=== PATIENT | male | born 1990 | race Caucasian/White ===

== ENCOUNTER 2017-10-01 11:39 | Emergency (ER) | payer BC, MEDICAID ==
[2017-10-01 11:58] VITALS: BP 147/82
--- NOTE | 2017-10-01 12:39 | UC ---
Norberto De Santiago Angela, scribed for Madison Edward MD on 10/01/17 at 1225 . General HPI - HPI Summary HPI Summary: This pt is a 26 y/o male presenting to [facility] c/o sinus infection x3 days. Pt reports he has had sinus congestion, sinus pain, right max, right frontal, chills, right ear pain (since this morning). He denies diarrhea, SOB, chest pain , cough. Pt notes normal PO intake. He believes he had sick contact from Thanksgiving dinner on 09/28/17. Pt has taken Sudafed this morning 3 hours [employer]. Has done saline sinus wash with minimal relief. + PND. No rash. no abd pain. No n/v. Allergies to penicillin, his reaction is hives. Patients medication reviewed this visit. - History of Current Complaint Chief Complaint: UCRespiratory Stated Complaint: SINUS ISSUE EAR PAIN Hx Obtained From: Patient Onset/Duration: Lasting Days, Still Present Timing: Constant Current Severity: Moderate Pain Location at: right ear, sinus pain Associated Signs & Symptoms: Positive: Other - POS: right ear ache, sinus infection, sinus congestion. NEG: diarrhea. 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 NEG: fever. Skin: Negative Eyes: Negative ENT: Ear Ache - right, Sinus Congestion, Sinus Pain/Tenderness Respiratory: Negative Cardiovascular: Negative Gastrointestinal: Negative Genitourinary: Negative Motor: Negative Neurovascular: Negative Musculoskeletal: Negative Neurological: Negative Psychological: Negative Is Patient Immunocompromised?: No All Other Systems Reviewed And Are Negative: Yes Physical Exam Triage Information Reviewed: Yes Completion Of Physical Exam Limited Due To: Altered Mental Status Appearance: Well-Appearing, No Pain Distress, Well-Nourished Vital Signs: Initial Vital Signs Temp 98 F 10/01/17 11:55 Pulse 88 10/01/17 11:55 Resp 20 10/01/17 11:55 BP 147/82 10/01/17 11:55 Pulse Ox 100 10/01/17 11:55 Vital Signs Reviewed: Yes Eye Exam: Normal Eyes: Positive: Conjunctiva Clear ENT Exam: Normal ENT: Positive: Sinus tenderness - right frontal, right max, Other - right TM ++ fluid, retraction + erythem left TM scant fluid turbinates inflammed + PND no erythema, no exudate mmoist Dental Exam: Normal Neck exam: Normal Neck: Positive: Supple, Nontender, No Lymphadenopathy Respiratory Exam: Normal Respiratory: Positive: Chest non-tender, Lungs clear, Normal breath sounds, No respiratory distress, No accessory muscle use Cardiovascular Exam: Normal Cardiovascular: Positive: RRR, No Murmur, Pulses Normal Abdominal Exam: Normal Abdomen Description: Positive: Nontender, No Organomegaly, Soft Bowel Sounds: Positive: Present Musculoskeletal Exam: Normal Musculoskeletal: Positive: Strength Intact Neurological Exam: Normal Neurological: Positive: Alert Psychological Exam: Normal Psychological: Positive: Normal Response To Family Skin Exam: Normal Course/Dx - Course Course Of Treatment: Blood pressure noted and patient informed to follow up with PCP. Pt with right TM erythema, fluid. + TTP turbinates. Rubin tart doxy , flonase. motrin/apap. secretion precautions. pt comfortable and in agreement with plan - Differential Dx - Multi-Symptom Provider Diagnoses: rhinosinusitis Discharge - Discharge Plan Condition: Stable Disposition: HOME Prescriptions: Doxycycline (Monohydrate) [Doxycycline Monohydrate] 100 mg PO BID #20 cap Fluticasone NASAL SPRAY 50MCG* [Flonase NASAL SPRAY 50MCG*] 2 spray BOTH NARES DAILY #1 btl Patient Education Materials: Rhinosinusitis (ED) Referrals: [facility] [place] [facility] [Outside] Additional Instructions: - stay well hydrated. Drink plenty of non-alcoholic, non-caffinated beverages - Take antibiotics as prescribed until gone - Use nasal spray once daily as prescribed - It is recommended you continue with decongestant - After you have been on antibiotics for 2 days - change your toothbrush and your pillowcase. These infections are spread by secretions - do NOT share eating or drinking utensils - clean items you share with other people such as cell phones, computer mouse, TV remote, computer tablets, etc - Alternate ibuprofen (Advil, Motrin) 600mg and Tylenol every 3 hours for pain or fever. Take with food. Do NOT take for more than 4-5 days. - Contact your doctor or return with questions or concerns The documentation as recorded by the Norberto steven Angela accurately reflects the service I personally performed and the decisions made by me, Madison Edward MD.
== END 2017-10-01 12:40 | disposition home or self-care (01) ==
LOC: UCEAST 11:39
DX: J32.9 Chronic sinusitis, unspecified (principal)
CPT/HCPCS: 99202; G0463